=== PATIENT | male | born 1955 ===

== ENCOUNTER → 2023-11-11 | Outpatient (REF) | payer MEDICARE, SELFPAY | LOC: DHSLP | PROVIDERS: ATTENDING PHYSICIAN Internal Medicine Critical Care Medicine; FAMILY PHYSICIAN Family Medicine | DX: G47.33 Obstructive sleep apnea (adult) (pediatric) (principal) | CPT/HCPCS: 95800 ==

== ENCOUNTER 2024-03-04 12:48 | Emergency (ER) | payer MEDICARE, OTHER, SELFPAY ==
[2024-03-04 12:51] VITALS: BP 166/98
[2024-03-04 13:56] VITALS: BMI 24.1
[2024-03-04 14:19] VITALS: BP 142/85
--- NOTE | 2024-03-04 15:57 | ED.GENMED ---
History of Present Illness
General
Chief Complaint: Musculo-Skeletal Complaint
Source: patient
Exam Limitations: none
Time Seen by Provider: 03/04/24 15:02
History of Present Illness
History of Present Illness:
68-year-old nontraumatic posterior neck pain for 3 days. Progressive in nature. Mildly positional and worse with rotation especially to the right. No distal numbness tingling or weakness. Some mild posterior headache with this. No chest pain or
shortness of breath. Patient has had some neck issues in the past but usually not this severe and does not usually last this long.
Past History
Past History
ED Past Medical History: HTN and Hypercholesterolemia
Review of Systems
Review of Systems
All Other Systems: Not applicable
Constitutional: Denies fever or chills
Respiratory: Reports no symptoms
Cardiac: Reports no symptoms
Neurological: Denies dizzy, weakness or numbness
Phy Exam
Physical Exam
Physical Exam:
GENERAL: Alert and oriented in no apparent distress
EYE: Orbits normal.
NECK: Relatively supple but decreased lateral rotation bilaterally slightly worse to the right. Some discomfort with this. Right paracervical tenderness posteriorly. No spinal tenderness..
ENT: Pharynx without erythema
CARDIAC: Regular rate and rhythm with midsystolic murmur.
LUNGS: Clear breath sounds,normal
ABDOMEN: Soft, without focal tenderness or distention
NEUROLOGICAL: Alert and oriented , grossly non-focal. [employer] Spr[employer] Unit Adjuster normal. Upper extremity strength normal. Interosseous intact. Flexion extension at the wrist normal.
SKIN: Warm and dry, no rash or lesion, no discoloration, skin intact.
MUSCULOSKELETAL: No edema,no deformity.Good color
PSYCH: Normal and appropriate interaction.
Course
Orders/Labs/Results
Orders:
Orders
03/04/24 15:10
CT Head W/o Iv Contrast Urgent
Comment:
Reason For Exam: Neck pain/some posterior headache
CT Neck Angio W/wo Iv Contrast Urgent
Comment:
Reason For Exam: Neck pain/ross. Bicuspid AV. include arch aorta
03/04/24 15:47
Ketorolac [Toradol] 15 mg .ROUTE .STK-MED ONE
03/04/24 15:50
Ketorolac [Toradol] 15 mg IV NOW STA
03/04/24 15:57
Basic Metabolic Panel Urgent
Complete Blood Count/With Diff Urgent
Abnormal Lab Results
03/04/24
15:57
RBC 4.46 L 10^6/uL
(4.70-6.10)
MCH 31.2 H pg
(27.0-31.0)
MPV 11.3 H fL
(7.4-10.4)
Lymphocytes % 20.1 L %
(20.5-51.1)
Glucose 100 H mg/dl
(70-99)
03/04/24 15:57
03/04/24 15:57
Vital Signs
Initial and Last Documented VS:
Initial Vital Signs
Temp Pulse Resp BP Pulse Ox
98.3 F 91 16 166/98 97
03/04/24 12:51 03/04/24 12:51 03/04/24 12:51 03/04/24 12:51 03/04/24 12:51
Last Documented Vital Signs
Temp Pulse Resp BP Pulse Ox
98.3 F 71 15 142/85 99
03/04/24 12:51 03/04/24 14:19 03/04/24 14:19 03/04/24 14:19 03/04/24 14:19
MDM/Problems Addressed
Differential Diagnosis Includes:
Patient's symptoms are very likely musculoskeletal. Possible herniated disc issue. However with bicuspid aortic valve murmur nontraumatic pain feel dissection has to be considered. Labs CTA pending.
*Radiology
Radiology exam reviewed: radiology read reviewed (CT head negative. CTA negative. Degenerative changes C5-C6.)
*Pulse Oximetry
Patient hypoxic: no
*Critical Care Note
Total Time (30-74mins, 75-104mins- exclusive of procedures): Not Applicable
Update Note
Update Note:
I am very comfortable that this is a musculoskeletal issue. Patient states he responds well to low-dose Valium as a muscle relaxer. Reason. Clinically nontoxic and stable. Discharged to follow-up
ED Attending Note
-
Portions of this chart may have been created with voice recognition software.� Occasional wrong word or��sound alike� substitutions may have occurred due to the inherent limitations of voice recognition software.
Discharge Plan
Departure
Patient Disposition: Home (Routine Discharge)
Date of Disposition: 03/04/24
Time of Disposition: 17:49
Patient with high blood pressure during this ER visit?: Yes
Discharge Problem:
Posterior neck pain, Degenerative changes C5-C6
Instructions: Neck Pain ED, BLOOD PRESSURE
Prescriptions:
New
diazepam [Valium] 5 mg tablet
5 mg PO TID PRN (Reason: muscle spasm) Qty: 14 0RF
Referrals:
Jessee Rucker, DO [Family Provider] - Follow up in 2-3 days
Activity Restrictions/Additional Instructions:
Your prescription was sent to your pharmacy
Can continue Advil Motrin or Aleve. You can also add Tylenol
Follow-up with the orthopedist that you were recommended
Interventions
Interventions:
*Risk Screen - Suicide Last Done: 03/04/24 12:51
*General Assessment Last Done: 03/04/24 12:51
*Neglect/Abuse Screening Last Done: 03/04/24 12:51
*Nursing Disposition Last Done: 03/04/24 18:02
ED-Musculoskeletal Assessment Last Done: 03/04/24 13:55
Discharge Date and Time
Discharge Date/Time: 03/04/24 18:03
Print Language: CHINESE
[2024-03-04] MEDS: TORADOL 15 MG IV (15:58)
[2024-03-04 16:09] LABS: % Basophils 0.7 % (0-2); % Eosinophils 2.4 % (0-6); % Immature Granulocytes 0.2 % (0-0.5); % Lymphocytes 20.1 % (20.5-51.1); % Monocytes 5.2 % (1.7-9.3); % Neutrophils 71.4 % (42.2-75.2); Absolute Basophils 0.1 10^3/uL (0-0.2); Absolute Eosinophils 0.2 10^3/uL (0-0.7); Absolute Lymphocytes 1.8 10^3/uL (1.2-3.4); Absolute Monocytes 0.5 10^3/uL (0.1-0.6); Absolute Neutrophils 6.5 10^3/uL (1.4-6.5); Hematocrit 40.3 % (39.0-52.0); Hemoglobin 13.9 g/dL (13.0-18.0); Mean Corp Hgb Conc. 34.5 g/dL (33.0-37.0); Mean Corpuscular Hgb 31.2 pg (27.0-31.0); Mean Corpuscular Volume 90.4 fL (80.0-94.0); Mean Platelet Volume 11.3 fL (7.4-10.4); Nucleated Red Blood Cells % 0 % (-); Platelet Count 177 10^3/uL (130-400); Red Blood Cell Count 4.46 10^6/uL (4.70-6.10); Red Cell Dist. Width 12.8 % (11.5-14.5); White Blood Cell Count 9.1 10^3/uL (4.8-10.8)
[2024-03-04 16:31] LABS: Blood Urea Nitrogen 18 mg/dl (9-20); Calcium 9.9 mg/dl (8.4-10.2); Carbon Dioxide 26 mmol/L (22-30); Chloride 104 mmol/L (98-107); Estimated Creatinine Clearance 83 ml/min; Glucose 100 mg/dl (70-99); Potassium 4.4 mmol/L (3.5-5.1); Sodium 140 mmol/L (135-145); eGFR > 60.00
== END 2024-03-04 18:03 | disposition home or self-care (01) ==
LOC: EMR 12:48
PROVIDERS: EMERGENCY PHYSICIAN Emergency Medicine; FAMILY PHYSICIAN Family Medicine
DX: M54.2 Cervicalgia (principal); M47.812 Spondylosis without myelopathy or radiculopathy, cervical region; I10 Essential (primary) hypertension; E78.00 Pure hypercholesterolemia, unspecified
CPT/HCPCS: 99284; 96374; 70450; 70498; 80048; 85025; Q9967